=== PATIENT | male | born 1940 | race Caucasian/White ===

== ENCOUNTER 2021-09-29 13:17 | Emergency (ER) | payer OTHER ==
[~2021-09-29] VITALS: Ht 182.9 cm; Wt 89.8 kg
--- NOTE | 2021-09-29 13:29 | NUR ---
PT BROUGHT TO ER FROM [facility] FOR BEING AGGRESSIVE TOWARDS AND HITTING STAFF. HX DEMENTIA. PT NOT SPEAKING. ALERT. COOPERATES WITH STAFF WHEN CHANGED TO GOWN. SUICIDE PRECAUTIONS IN PLACE. WILL CONTINUE TO MONITOR.
[2021-09-29 14:04] LABS: BASOPHILS # (AUTO) 0.1 K/uL (0.0-0.2); BASOPHILS % (AUTO) 0.9 % (0.0-2.0); EOSINOPHILS % (AUTO) 3.7 % (0.0-6.0); HEMATOCRIT 40 % (39-51); HEMOGLOBIN 13.3 g/dL (13.5-17.5); LYMPHOCYTES # (AUTO) 1.5 K/uL (0.8-4.8); LYMPHOCYTES % (AUTO) 24.5 % (20.0-44.0); MEAN CORPUSCULAR HGB CONC 34 g/dl (31.0-36.0); MEAN CORPUSCULAR VOLUME 93 fL (80-96); MONOCYTES # (AUTO) 0.6 K/uL (0.1-1.30); MONOCYTES % (AUTO) 9.7 % (2.0-12.0); NEUTROPHILS # (AUTO) 3.6 K/uL (1.8-8.9); NEUTROPHILS % (AUTO) 61.2 % (43.0-81.0); PLATELET COUNT (AUTO) 151 K/uL (150-450); RED BLOOD CELL COUNT(AUTO) 4.25 MIL/uL (4.5-6.0); WHITE BLOOD COUNT (AUTO) 5.9 K/uL (4.3-11.0)
[2021-09-29 14:16] LABS: ALANINE AMINOTRANSFERASE 16 U/L (12-78); ALBUMIN 3.2 g/dL (3.4-5.0); ALCOHOL, BLOOD < 3 mg/dL (0-0); ALKALINE PHOSPHATASE 76 U/L (46-116); ASPARTATE AMINOTRANSFERASE 16 U/L (15-37); BILIRUBIN,DIRECT 0.4 mg/dL (0.0-0.2); BILIRUBIN,TOTAL 4.3 mg/dL (0.2-1.0); CALCIUM, SERUM 8.4 mg/dL (8.5-10.1); CARBON DIOXIDE 30 mmol/L (21-32); CHLORIDE 105 mmol/L (98-107); CREATININE 1.4 mg/dL (0.6-1.3); GLUCOSE 84 mg/dL (74-106); POTASSIUM 3.3 mmol/L (3.5-5.1); SODIUM SERUM 141 mmol/L (136-145); TOTAL PROTEIN, SERUM 6.8 g/dL (6.4-8.2); UREA NITROGEN, BLOOD 16 mg/dL (7-18)
[2021-09-29 14:17] LABS: ACETAMINOPHEN 0 ug/ml (10-30)
--- NOTE | 2021-09-29 14:21 | NUR ---
urine sample obtained and sent to lab
[2021-09-29] MEDS ORDERED: LOSA50TA39 PO (14:22)
[2021-09-29] MEDS ORDERED: ATOR10TA PO (14:22)
[2021-09-29] MEDS ORDERED: MIRT7.5T10 PO (14:22)
[2021-09-29] MEDS ORDERED: MULT-16 PO (14:22)
[2021-09-29] MEDS ORDERED: QUET50TA PO (14:22)
[2021-09-29] MEDS ORDERED: TRIA80OI TP (14:22)
[2021-09-29] MEDS ORDERED: QUET25TA PO ×2 (14:22)
[2021-09-29] MEDS ORDERED: POLY17PO4 PO (14:22)
[2021-09-29] MEDS ORDERED: RIVA10TA PO (14:22)
[2021-09-29] MEDS ORDERED: CLOT15CR27 TP (14:22)
[2021-09-29] MEDS ORDERED: HYDR59LO7 TP (14:22)
[2021-09-29] MEDS ORDERED: CITA10TA9 PO (14:22)
[2021-09-29] MEDS ORDERED: METO-357 PO (14:22)
[2021-09-29] MEDS ORDERED: TAMS-12 PO (14:22)
[2021-09-29] MEDS ORDERED: ZINC113O14 TP (14:22)
[2021-09-29 14:36] LABS: BILIRUBIN,URINE SMALL (NEGATIVE); COLOR,URINE YELLOW (YELLOW); LEUKOCYTE ESTERASE ,URINE NEGATIVE (NEGATIVE); NITRITE, URINE NEGATIVE (NEGATIVE); PH,URINE 6.5 (5.0-8.0); PROTEIN,URINE 30 mg/dl (NEGATIVE); UGLUCOSE NEGATIVE (NEGATIVE)
[2021-09-29 15:14] LABS: RBC,URINE 0-2 /HPF (0-2); WBC,URINE 0-2 /HPF (0-3)
[2021-09-29 15:15] LABS: BACTERIA,URINE Few /HPF (None Seen); SQUAMOUS EPITHELIAL CELL,UR 0-2 /HPF (None Seen)
--- NOTE | 2021-09-29 15:25 | NUR ---
[facility] notified ED RNAndriy that patient has [facility] and their [facility] department must be called for continuity of care / psychiatric treatment.
--- NOTE | 2021-09-29 16:04 | NUR ---
COVID SAMPLE OBTAINED AND SENT TO LAB
--- NOTE | 2021-09-29 16:18 | NUR ---
[facility]. MADE AWARE RE: MEMBER IN ER. MADE AWARE RE: ER READY FOR CONSULT. PER [facility] REGISTERED NURSE WILL CALL US [facility]. PRIMARY RN AWARE.
--- NOTE | 2021-09-29 19:22 | NUR ---
CALLED [facility] FOR REPORT. NO ONE ANSWERS.
--- NOTE | 2021-09-29 19:23 | NUR ---
NUMBER TO GIVE REPORT
--- NOTE | 2021-09-29 19:46 | NUR ---
[facility]A FOR TRANSPORT @ 2000 [facility]IA [facility]
--- NOTE | 2021-09-29 20:41 | NUR ---
[facility] AT BEDSIDE FOR BUREAU CHIEF
[2021-09-29 20:42] VITALS: BP 136/88
--- NOTE | 2021-09-29 20:42 | NUR ---
Patient discharged to home in stable condition. Written and verbal after care instructions given.
== END 2021-09-29 20:43 ==
LOC: ER 13:17
DX: F03.91 Unspecified dementia, unspecified severity, with behavioral disturbance (principal); Z20.822 Contact with and (suspected) exposure to COVID-19; N40.0 Benign prostatic hyperplasia without lower urinary tract symptoms; Z85.828 Personal history of other malignant neoplasm of skin
CPT/HCPCS: 36415; 80048; 80076; 80143; 80307; 80320; 81001; 85025; 87426; 99283; C9803; G0480